=== PATIENT | female | born 1985 | race Caucasian/White ===

== ENCOUNTER 2021-04-07 13:34 | Emergency (ER) | payer OTHER ==
[2021-04-07 14:33] VITALS: BMI 19.5
[2021-04-07] MEDS ORDERED: ACETAMINOPHEN 500 MG TABLET (FP) PO ONE (14:42)
[2021-04-07] MEDS ORDERED: ONDANSETRON *ODT* 4 MG TABLET SL ONE (14:42)
[2021-04-07] MEDS ORDERED: KETOROLAC TROMETHAMINE 30 MG/1 ML VIAL IM ONE (14:43)
[2021-04-07] MEDS ORDERED: KETOROLAC TROMETHAMINE 30 MG/1 ML VIAL ONE (16:09)
[2021-04-07] MEDS ORDERED: ONDANSETRON *ODT* 4 MG TABLET ONE (16:10)
[2021-04-07] MEDS ORDERED: ACETAMINOPHEN 500 MG TABLET (FP) ONE (16:10)
[2021-04-07 19:29] VITALS: BP 114/69; PULSE 91; TEMP 99.2
== END 2021-04-07 19:29 | disposition home or self-care (01) ==
LOC: JER 13:34
PROC: 3E0233Z Introduction of Anti-inflammatory into Muscle, Percutaneous Approach (ICD-10-PCS; principal; 2021-04-07)
DX: J09.X2 Influenza due to identified novel influenza A virus with other respiratory manifestations (principal)
CPT/HCPCS: 87804; 87807; 99284-25; C9803; Q0162; U0003; U0005